=== PATIENT | female | born 1945 | race Caucasian/White ===

== ENCOUNTER 2017-07-21 07:32 | Outpatient (CLI) | payer OTHER | END 2017-07-21 07:37 | disposition home or self-care (01) | LOC: LAB 07:32 | DX: C50.412 Malignant neoplasm of upper-outer quadrant of left female breast (principal) ==

== ENCOUNTER → 2017-07-21 | Outpatient (CLI) | payer OTHER | END | disposition home or self-care (01) | LOC: MAMO-SONO 08:16 | DX: Z12.31 Encounter for screening mammogram for malignant neoplasm of breast (principal); Z87.898 Personal history of other specified conditions; C50.412 Malignant neoplasm of upper-outer quadrant of left female breast ==

== ENCOUNTER 2017-12-01 08:32 | Emergency (ER) | payer OTHER ==
[~2017-12-01] VITALS: Ht 157.5 cm; Wt 63.5 kg
== END 2017-12-01 10:40 | disposition home or self-care (01) ==
LOC: ER 08:32
DX: N39.0 Urinary tract infection, site not specified (principal)

== ENCOUNTER 2017-12-11 12:45 | Outpatient (CLI) | payer OTHER | END 2017-12-11 12:46 | disposition home or self-care (01) | LOC: LAB 12:45 | DX: N30.00 Acute cystitis without hematuria (principal); R82.79 Other abnormal findings on microbiological examination of urine ==

== ENCOUNTER 2018-07-22 10:14 | Emergency (ER) | payer OTHER ==
[~2018-07-22] VITALS: Ht 160 cm; Wt 68.0 kg
[2018-07-22] MEDS ORDERED: NOLVADEX10 MG (11:00)
== END 2018-07-22 13:29 | disposition home or self-care (01) ==
LOC: ER 10:14
DX: N39.0 Urinary tract infection, site not specified (principal)

== ENCOUNTER → 2018-08-09 | Outpatient (CLI) | payer OTHER ==
[~2018-08-09] MED LIST: NOLVADEX10 MG
== END | disposition home or self-care (01) ==
LOC: MAMO-SONO 06:59
DX: C50.412 Malignant neoplasm of upper-outer quadrant of left female breast (principal)

== ENCOUNTER 2018-10-03 10:11 | Emergency (ER) | payer OTHER ==
[~2018-10-03] VITALS: Ht 157.5 cm; Wt 68.0 kg
== END 2018-10-03 13:43 | disposition home or self-care (01) ==
LOC: ER 10:11
DX: M70.72 Other bursitis of hip, left hip (principal)

== ENCOUNTER 2019-03-27 09:23 | Emergency (ER) | payer OTHER ==
[~2019-03-27] VITALS: Ht 157.5 cm; Wt 68.5 kg
== END 2019-03-27 13:08 | disposition home or self-care (01) ==
LOC: ER 09:23
DX: M25.511 Pain in right shoulder (principal); R07.89 Other chest pain

== ENCOUNTER 2019-07-03 15:55 | Emergency (ER) | payer OTHER ==
[~2019-07-03] VITALS: Ht 157.5 cm; Wt 68.0 kg
== END 2019-07-03 19:48 | disposition home or self-care (01) ==
LOC: ER 15:55
DX: S60.511A Abrasion of right hand, initial encounter (principal); W22.8XXA Striking against or struck by other objects, initial encounter; Y93.89 Activity, other specified; Y92.098 Other place in other non-institutional residence as the place of occurrence of the external cause; Y99.8 Other external cause status

== ENCOUNTER 2020-10-22 07:58 | Outpatient (CLI) | payer OTHER | END 2020-10-22 08:15 | disposition home or self-care (01) | LOC: MAMO-SONO 07:58 | PROVIDERS: ATTEND Internal Medicine | DX: C50.412 Malignant neoplasm of upper-outer quadrant of left female breast (principal) ==

== ENCOUNTER 2020-11-27 08:04 | Outpatient (CLI) | payer OTHER | END 2020-11-27 08:11 | disposition home or self-care (01) | LOC: RAD 08:04 → MAMO-SONO 12-07 08:30 | PROVIDERS: ATTEND Internal Medicine Geriatric Medicine | DX: I11.9 Hypertensive heart disease without heart failure (principal); R06.02 Shortness of breath ==

== ENCOUNTER → 2021-01-22 08:04 | Outpatient (CLI) | payer OTHER | END | disposition home or self-care (01) | LOC: LAB 08:04 | PROVIDERS: ATTEND Internal Medicine Geriatric Medicine | DX: N39.0 Urinary tract infection, site not specified (principal); B96.29 Other Escherichia coli [E. coli] as the cause of diseases classified elsewhere ==

== ENCOUNTER → 2021-02-05 08:00 | Outpatient (CLI) | payer OTHER | END | disposition home or self-care (01) | LOC: PPH VACUNA 08:00 | PROVIDERS: ATTEND Emergency Medicine Pediatric Emergency Medicine | DX: Z23 Encounter for immunization (principal) ==

== ENCOUNTER → 2021-02-05 08:46 | Outpatient (CLI) | payer OTHER | END | disposition home or self-care (01) | LOC: LAB 08:46 | PROVIDERS: ATTEND Internal Medicine Geriatric Medicine | DX: N39.0 Urinary tract infection, site not specified (principal) ==